=== PATIENT | male | born 1990 | race Two or more races ===

== ENCOUNTER 2021-12-23 18:41 | Inpatient (IN) | payer OTHER ==
[~2021-12-23] VITALS: Ht 170.2 cm; Wt 66.0 kg
[2021-12-23] MEDS ORDERED: LORazepam 2MG/ML-1ML VIAL IV ONE (19:45)
[2021-12-23 20:20] LABS: Basophils # (auto) 0 10 ^3/uL (0-0.2); Basophils % (auto) 0.3 % (0.0-2.0); Eosinophils # (auto) 0 10 ^3/uL (0-0.8); Hematocrit 44.5 % (41.0-53.0); Hemoglobin 14.5 g/dL (13.5-17.5); Lymphocytes # (auto) 0.8 10 ^3/uL (0.4-5.4); Mean Corpuscular Hemoglobin 27.7 pg (28.0-32.0); Mean Corpuscular Hgb Conc. 32.5 g/dL (32.0-36.0); Mean Corpuscular Volume 85.2 fL (80.0-100.0); Monocytes # (auto) 0.8 10 ^3/uL (0-1.3); Monocytes % (auto) 6.4 % (0.0-12.0); Neutrophils # (auto) 11.5 10 ^3/uL (1.6-8.6); Neutrophils % (auto) 87.3 % (37.0-80.0); Nucleated Red Blood Cells % 0.1 %; Red Blood Cells 5.22 10^6/uL (4.5-5.90); Red Cell Distribution Width 13.3 % (11.8-14.3); White Blood Cell 13.1 10^3/uL (4.4-10.8)
[2021-12-23] MEDS: METOPROLOL TARTRATE 1MG/1ML-5ML VIAL IV SCH ×7 (20:25→22:14)
[2021-12-23 20:37] LABS: Albumin 4.5 g/dL (3.4-5.0); Anion Gap 7 (5-15); Blood Alcohol < 3.0 mg/dL (0-5); Blood Urea Nitrogen 7 mg/dL (7-18); Calcium 9.1 mg/dL (8.5-10.1); Carbon Dioxide 25 mmol/L (21-32); Chloride 104 mmol/L (98-107); Glucose 89 mg/dL (74-106); Potassium 4.2 mmol/L (3.5-5.1); Sodium 136 mmol/L (136-145)
[2021-12-23 20:38] LABS: Acetaminophen < 2.0 ug/mL (10-30); Salicylate < 1.7 mg/dL (2.8-20.0)
[2021-12-23 20:40] LABS: Alanine Aminotransferase 22 U/L (16-61); Alkaline Phosphatase 72 U/L (45-117); Aspartate Aminotransferase 21 U/L (15-37); BUN/Creatinine Ratio 5.2; Bilirubin, Total 0.2 mg/dL (0.2-1.0); GFR African American 79 mL/min; GFR Non-African American 65 mL/min; Total Protein 7.8 g/dL (6.4-8.2)
[2021-12-23] MEDS ORDERED: METOPROLOL TARTRATE 1MG/1ML-5ML VIAL IV ONE (20:50)
[2021-12-23] MEDS ORDERED: levETIRAcetam 500 MG/5ML INJ IV ONE (20:50)
[2021-12-23 22:50] LABS: Alcohol, Urine < 3.0 mg/dL (0-10); Amphetamine Screen, Urine NEGATIVE (NEGATIVE); Barbiturate Scree,Urine NEGATIVE (NEGATIVE); Benzodiazephine Screen, Urine NEGATIVE (NEGATIVE); Cannabinoid Screen, Urine NEGATIVE (NEGATIVE); Cocaine Screen, Urine NEGATIVE (NEGATIVE); Opiate Scree,Urine NEGATIVE (NEGATIVE); Phencyclidine Screen, Urine NEGATIVE (NEGATIVE)
[2021-12-24] MEDS ORDERED: MORPHINE SULFATE INJECTION 2 MG/ML SYRG IV PRN (01:30)
[2021-12-24] MEDS ORDERED: NITROGLYCERIN 0.4 MG SL TAB SL PRN (01:30)
[2021-12-24 02:54] VITALS: BP 122/73
[2021-12-24] MEDS ORDERED: D5W/SOD CHL 0.45% 1,000 ML IV ONE (03:00)
[2021-12-24] MEDS ORDERED: HAL1T PO (04:49)
[2021-12-24] MEDS ORDERED: TRAZ100T3 PO (04:51)
[2021-12-24] MEDS ORDERED: BEN2I IM (04:51)
[2021-12-24 07:46] LABS: Calcium 8.1 mg/dL (8.5-10.1); Potassium 4.2 mmol/L (3.5-5.1)
[2021-12-24 09:00] VITALS: BP 105/66
[2021-12-24 13:13] VITALS: BP 118/67
[2021-12-24 17:00] VITALS: BP 111/54
[2021-12-24 22:00] VITALS: BP 98/54
[2021-12-25 05:00] VITALS: BP 98/67
[2021-12-25 09:00] VITALS: BP 105/56
[2021-12-25 13:00] VITALS: BP 98/64
[2021-12-25 17:00] VITALS: BP 110/64
[2021-12-25 22:00] VITALS: BP 107/63
[2021-12-26 05:00] VITALS: BP 99/58
[2021-12-26 07:57] LABS: Albumin 3.2 g/dL (3.4-5.0); Calcium 8.6 mg/dL (8.5-10.1); Potassium 4.5 mmol/L (3.5-5.1)
[2021-12-26 08:15] LABS: BUN/Creatinine Ratio 18.3; Bilirubin, Total 0.2 mg/dL (0.2-1.0); Total Protein 6.5 g/dL (6.4-8.2)
[2021-12-26 09:00] VITALS: BP 105/66
[2021-12-26 13:00] VITALS: BP 112/74
== END 2021-12-26 17:45 | DRG 918 ==
LOC: EDBD 18:41 → EEVIPCON 18:46 → ER 18:46 → TELE 12-24 01:25 → TELE-CENTR 12-24 02:54
PROVIDERS: ADMIT Internal Medicine; ATTEND Internal Medicine
DX: T43.221A Poisoning by selective serotonin reuptake inhibitors, accidental (unintentional), initial encounter (principal); S01.01XA Laceration without foreign body of scalp, initial encounter; F17.210 Nicotine dependence, cigarettes, uncomplicated; F20.9 Schizophrenia, unspecified; R56.9 Unspecified convulsions; Z20.822 Contact with and (suspected) exposure to COVID-19; W06.XXXA Fall from bed, initial encounter; Y93.89 Activity, other specified; Y99.8 Other external cause status; Y92.003 Bedroom of unspecified non-institutional (private) residence as the place of occurrence of the external cause
CPT/HCPCS: 36415; 80048; 80053; 80307; 80320; 80329; 82550; 83735; 85025; 87426; 93005; 96365; 96375; 99291; G0378; J7060

== ENCOUNTER 2022-01-28 21:10 | Emergency (ER) | payer OTHER ==
[~2022-01-28] VITALS: Ht 170.2 cm; Wt 59.0 kg
[~2022-01-28 21:10] MED LIST: BEN2I IM; HAL1T PO; TRAZ100T3 PO
[2022-01-28 22:40] LABS: Basophils # (auto) 0.2 10 ^3/uL (0-0.2); Basophils % (auto) 1.9 % (0.0-2.0); Eosinophils # (auto) 0 10 ^3/uL (0-0.8); Eosinophils % (auto) 0.1 % (0.0-7.0); Hematocrit 38.9 % (41.0-53.0); Hemoglobin 13.1 g/dL (13.5-17.5); Lymphocytes # (auto) 0.9 10 ^3/uL (0.4-5.4); Lymphocytes % (auto) 7.9 % (10.0-50.0); Mean Corpuscular Hemoglobin 28.8 pg (28.0-32.0); Mean Corpuscular Hgb Conc. 33.6 g/dL (32.0-36.0); Mean Corpuscular Volume 85.9 fL (80.0-100.0); Monocytes # (auto) 0.8 10 ^3/uL (0-1.3); Monocytes % (auto) 7.5 % (0.0-12.0); Neutrophils # (auto) 9.1 10 ^3/uL (1.6-8.6); Neutrophils % (auto) 82.6 % (37.0-80.0); Red Blood Cells 4.53 10^6/uL (4.5-5.90); Red Cell Distribution Width 13.5 % (11.8-14.3)
[2022-01-28 23:03] LABS: Albumin 4.2 g/dL (3.4-5.0); BUN/Creatinine Ratio 5.6; Potassium 3.3 mmol/L (3.5-5.1)
[2022-01-28 23:18] LABS: Bilirubin, Total 0.1 mg/dL (0.2-1.0); Total Protein 7.4 g/dL (6.4-8.2)
[2022-01-29 00:51] VITALS: BP 128/66
== END 2022-01-28 23:44 | disposition home or self-care (01) ==
LOC: EEVIPCON 21:11 → ER 21:11
DX: R56.9 Unspecified convulsions (principal)
CPT/HCPCS: 36415; 70450; 80053; 85025; 93005

== ENCOUNTER 2023-01-17 13:57 | Inpatient (IN) | payer OTHER ==
[~2023-01-17] VITALS: Ht 170.2 cm; Wt 63.0 kg
[2023-01-17] MEDS ORDERED: SODIUM CHLORIDE 0.9% 1,000 ML IV ONE (14:30)
[2023-01-17 14:40] LABS: Basophils # (auto) 0.1 10 ^3/uL (0-0.2); Basophils % (auto) 0.5 % (0.0-2.0); Eosinophils # (auto) 0 10 ^3/uL (0-0.8); Eosinophils % (auto) 0.2 % (0.0-7.0); Hematocrit 43.9 % (41.0-53.0); Hemoglobin 14.2 g/dL (13.5-17.5); Lymphocytes # (auto) 1.5 10 ^3/uL (0.4-5.4); Lymphocytes % (auto) 11.9 % (10.0-50.0); Mean Corpuscular Hgb Conc. 32.3 g/dL (32.0-36.0); Mean Corpuscular Volume 86.6 fL (80.0-100.0); Monocytes # (auto) 0.8 10 ^3/uL (0-1.3); Monocytes % (auto) 6.6 % (0.0-12.0); Neutrophils # (auto) 10.2 10 ^3/uL (1.6-8.6); Neutrophils % (auto) 80.8 % (37.0-80.0); Nucleated Red Blood Cells % 0.1 %; Red Blood Cells 5.07 10^6/uL (4.5-5.90); Red Cell Distribution Width 14.1 % (11.8-14.3); White Blood Cell 12.6 10^3/uL (4.4-10.8)
[2023-01-17 15:08] LABS: Albumin 3.9 g/dL (3.4-5.0); BUN/Creatinine Ratio 8.6; Calcium 8.1 mg/dL (8.5-10.1); Potassium 3.4 mmol/L (3.5-5.1)
[2023-01-17 15:10] LABS: Bilirubin, Total 0.1 mg/dL (0.2-1.0); Total Protein 6.8 g/dL (6.4-8.2)
[2023-01-17] MEDS ORDERED: NITROGLYCERIN 0.4 MG SL TAB SL PRN (17:00)
[2023-01-17] MEDS ORDERED: ONDANSETRON HCL 4 MG/2 ML VIAL IV PRN (17:00)
[2023-01-17] MEDS ORDERED: MORPHINE SULFATE INJ 2 MG/ml SYRG IV PRN (17:00)
[2023-01-17 19:10] LABS: Urine Bacteria NONE SEEN /hpf (None Seen); Urine Blood Negative /uL (Negative); Urine Hyaline Cast FEW /lpf (0 - 2); Urine WBC 3 /hpf (0 - 3)
[2023-01-17 19:24] LABS: Alcohol, Urine < 3.0 mg/dL (0-10); Amphetamine Screen, Urine NEGATIVE (NEGATIVE); Barbiturate Scree,Urine NEGATIVE (NEGATIVE); Benzodiazephine Screen, Urine NEGATIVE (NEGATIVE); Cannabinoid Screen, Urine NEGATIVE (NEGATIVE); Cocaine Screen, Urine NEGATIVE (NEGATIVE); Opiate Scree,Urine NEGATIVE (NEGATIVE); Phencyclidine Screen, Urine NEGATIVE (NEGATIVE)
[2023-01-17] MEDS ORDERED: POTASSIUM CHL 20 Meq TABLET PO ONE (21:15)
[2023-01-17] MEDS ORDERED: ACETAMINOPHEN 325 MG TAB PO PRN (21:15)
[2023-01-17] MEDS ORDERED: REMDESIVIR PER PHARMACY 0 ML IV SCH (22:45)
[2023-01-18 05:00] VITALS: BP 155/96
[2023-01-18 06:35] LABS: Potassium 3.9 mmol/L (3.5-5.1)
[2023-01-18 06:42] LABS: Albumin 3.5 g/dL (3.4-5.0); Calcium 8.2 mg/dL (8.5-10.1)
[2023-01-18 06:45] LABS: Bilirubin, Total 0.4 mg/dL (0.2-1.0); Total Protein 6.3 g/dL (6.4-8.2)
[2023-01-18 08:47] VITALS: BP 125/79
[2023-01-18] MEDS ORDERED: DexAMETHasone SOD PHOS 10MG/1ML VIAL INJ IV SCH (10:00)
[2023-01-18] MEDS ORDERED: AZITHROMYCIN 250 MG TAB PO SCH (10:00)
[2023-01-18 13:00] VITALS: BP 132/86
[2023-01-18] MEDS ORDERED: REMDESIVIR 200 MG in NS 210ml LOADING DOSE ADULT IV ONE (15:00)
[2023-01-18 15:02] LABS: Albumin 3.6 g/dL (3.4-5.0); Calcium 8.1 mg/dL (8.5-10.1)
[2023-01-18 15:06] LABS: BUN/Creatinine Ratio 9.6; Bilirubin, Total 0.3 mg/dL (0.2-1.0); Total Protein 6.7 g/dL (6.4-8.2)
[2023-01-18 17:00] VITALS: BP 117/79
[2023-01-19] MEDS ORDERED: REMDESIVIR 100mg 100 MG in SODIUM CHL 0.9% 230 ML IV SCH (15:00)
== END 2023-01-18 20:50 | DRG 917 ==
LOC: ER 13:57 → EEVIPCON 13:57 → EDBD 13:57 → OVERFLOW 16:59 → WEST WING 21:12
PROVIDERS: ADMIT Internal Medicine; ATTEND Internal Medicine
PROC: XW033E5 Introduction of Remdesivir Anti-infective into Peripheral Vein, Percutaneous Approach, New Technology Group 5 (ICD-10-PCS; principal; 2023-01-18)
DX: T40.411A Poisoning by fentanyl or fentanyl analogs, accidental (unintentional), initial encounter (principal); U07.1 COVID-19; E87.6 Hypokalemia; F19.129 Other psychoactive substance abuse with intoxication, unspecified; F20.9 Schizophrenia, unspecified; R56.9 Unspecified convulsions; T43.221A Poisoning by selective serotonin reuptake inhibitors, accidental (unintentional), initial encounter; S00.93XA Contusion of unspecified part of head, initial encounter; X58.XXXA Exposure to other specified factors, initial encounter; Y92.89 Other specified places as the place of occurrence of the external cause; Z23 Encounter for immunization; Y93.89 Activity, other specified; Y99.8 Other external cause status
CPT/HCPCS: 36415; 70450; 71045; 80053; 80307; 80329; 81001; 84484; 85025; 85379; 87426; 93005; 96360; G0378; J1100